=== PATIENT | male | born 1995 | race African-American/Black ===

== ENCOUNTER 2024-04-06 21:39 | Emergency (ER) | payer OTHER ==
[~2024-04-06] VITALS: Ht 182.9 cm; Wt 82.5 kg
[2024-04-06 22:23] VITALS: BP 127/84; PULSE 58; RESP 16; O2SAT 99
== END 2024-04-06 23:44 | disposition left against medical advice (07) ==
LOC: ER 21:39
DX: T67.8XXA Other effects of heat and light, initial encounter (principal); Z53.21 Procedure and treatment not carried out due to patient leaving prior to being seen by health care provider; X30.XXXA Exposure to excessive natural heat, initial encounter; Y93.89 Activity, other specified; Y92.89 Other specified places as the place of occurrence of the external cause; Y99.8 Other external cause status

== ENCOUNTER 2024-10-01 01:21 | Emergency (ER) | payer OTHER ==
[~2024-10-01] VITALS: Ht 182.9 cm; Wt 88.6 kg
--- NOTE | 2024-10-01 03:06 | DVH ---
CHEST RADIOGRAPH Indication: cp Technique: 1 view Comparison: None FINDINGS: Lines and Tubes: None Lungs: No focal consolidation. Pleura: No effusion or pneumothorax. Cardiomediastinal contours: Unremarkable. Bones: No acute osseous abnormality. IMPRESSION: 1. No acute cardiopulmonary abnormality.
[2024-10-01 03:13] LABS: Hemoglobin 14.9 g/dL (13.5-17.5)
[2024-10-01 03:13] LABS: Chloride 107 mmol/L (98-107); Potassium 3.9 mmol/L (3.5-5.1); Sodium 142 mmol/L (136-145)
[2024-10-01 03:14] LABS: Anion Gap 9 (5-15); Carbon Dioxide 26 mmol/L (20-31)
[2024-10-01 03:15] LABS: Calcium 9.2 mg/dL (8.7-10.4)
[2024-10-01 03:15] LABS: Hematocrit 36.1 % (41.0-53.0); Mean Corpuscular Hemoglobin 37.7 pg (28.0-32.0); Mean Corpuscular Volume 91.4 fL (80.0-100.0); Nucleated Red Blood Cells % 0.2 %
[2024-10-01 03:19] LABS: BUN/Creatinine Ratio 18.3 (10.0-20.0); Blood Urea Nitrogen 20 mg/dL (9-23); Glucose 91 mg/dL (74-106)
--- NOTE | 2024-10-01 03:49 | ED.PDOC ---
HPI Comments 28 y/o M with no significant past medical history presents with c/c of chest pain radiating to the throat and shortness of breath. Patient reports symptoms have been going on for the past 2 months intermittently, and denies any exacerbating or alleviating factors. Pain is described to be tight in quality. No recent travel, sick contact, nausea, vomiting, diaphoresis, edema or other symptoms. No pertinent medical history, with exception of paternal family history of heart disease. Chief Complaint: Chest Pain Time Seen by MD: 02:30 Primary Care Provider: NONE Reviewed Notes: Nurses Notes, Medications, Allergies Allergies: Coded Allergies: NO KNOWN ALLERGIES (Unverified , 02/09/13) Information Source: Patient Mode of Arrival: Ambulatory Severity: Moderate Timing: Months Duration: Intermittent Prehospital treatment: None Location: Substernal Radiation: Other (throat ) Quality: Tightness Cardiac Risk Factors: Smoker (former ) PE Risk Factors: None History of: Other (former tobacco smoker ) Modifying Factors: Nothing Associated Signs and Symptoms: SOB, Other (throat pain ) Past Medical History PAST MEDICAL HISTORY: Denies Surgical History: Denies all surgeries Family History Family History: Unobtainable Social History Smoker: Quit Less Than 1 Year Alcohol: Denies ETOH Use Drugs: Denies Drug Use Lives In: Home All Other Systems: Reviewed and Negative (Comprehensive review of systems are negative unless otherwise stated in HPI) Physical Exam General Appearance: No Apparent Distress HEENT: Other (Pupils and face symmetric. Moist mucous membranes.) Neck: Full Range of Motion, Normal Inspection Respiratory: Lungs Clear, No Accessory Muscle Use, No Respiratory Distress, Normal Breath Sounds Cardiovascular: No Edema, No JVD, Regular Rate/Rhythm Breast Exam: Deferred Gastrointestinal: Non Tender, Soft Genitalia: Deferred Pelvic: Deferred Rectal: Deferred Extremities: Normal inspection, Normal range of motion, Non-tender, No pedal edema Neurologic: Alert (Oriented x4), Normal Affect, Other (Ambulatory without difficulty. Appears anxious.) Cerebellar Function: NOT DONE Reflexes: NOT DONE Skin: Dry, Normal Color, Warm Lymphatic: NOT DONE EKG EKG : Comments Sinus rhythm, rate 58, normal intervals, normal axis, normal QRS, nonspecific T change. Was a procedure done? Was a procedure done?: No CP Differential Dx Differential Diagnosis: Angina, Anxiety / Panic Attack Differential Diagnosis: N/A Differential Diagnosis: Chest Wall Pain, Costochondritis, Esophageal reflux/spasm, Gastritis, Myocardial Infarction, Pericarditis, Pneumonia, Pulmonary Embolus X-Ray, Labs, Meds, VS Vital Signs Date Time Temp Pulse Resp B/P (MAP) Pulse Ox O2 Delivery O2 Flow Rate FiO2 10/01/24 04:23 97.7 70 16 115/57 (76) 97 97.7 10/01/24 01:34 98.2 57 16 138/96 96 98.2 10/01/24 01:31 58 Lab Test 10/01/24 02:39 10/01/24 02:30 10/01/24 01:38 Range/Units White Blood Count 4.6 4.4-10.8 10^3/uL Red Blood Count 3.95 L 4.5-5.90 10^6/uL Hemoglobin 14.9 13.5-17.5 g/dL Hematocrit 36.1 L 41.0-53.0 % Mean Corpuscular Volume 91.4 80.0-100.0 fL Mean Corpuscular Hemoglobin 37.7 H 28.0-32.0 pg Mean Corpuscular Hemoglobin Concent 41.2 H 32.0-36.0 g/dL Red Cell Distribution Width 13.7 11.8-14.3 % Platelet Count 162 140-450 10^3/uL Mean Platelet Volume 9.7 6.9-10.8 fL Neutrophils (%) (Auto) 52.8 37.0-80.0 % Lymphocytes (%) (Auto) 37.6 10.0-50.0 % Monocytes (%) (Auto) 7.0 0.0-12.0 % Eosinophils (%) (Auto) 1.8 0.0-7.0 % Basophils (%) (Auto) 0.8 0.0-2.0 % Neutrophils # (Auto) 2.4 1.6-8.6 10 ^3/uL Lymphocytes # (Auto) 1.7 0.4-5.4 10 ^3/uL Monocytes # (Auto) 0.3 0-1.3 10 ^3/uL Eosinophils # (Auto) 0.1 0-0.8 10 ^3/uL Basophils # (Auto) 0 0-0.2 10 ^3/uL Nucleated Red Blood Cells 0.2 % Troponin I High Sensitivity 8 8 </=54 ng/L D-Dimer, Quantitative < 0.19 0.0-0.49 mg/L FEU Sodium Level 142 136-145 mmol/L Potassium Level 3.9 3.5-5.1 mmol/L Chloride Level 107 98-107 mmol/L Carbon Dioxide Level 26 20-31 mmol/L Anion Gap 9 5-15 Blood Urea Nitrogen 20 9-23 mg/dL Creatinine 1.09 0.700-1.30 mg/dL Glomerular Filtration Rate Calc 95 >90 mL/min BUN/Creatinine Ratio 18.3 10.0-20.0 Serum Glucose 91 74-106 mg/dL Calcium Level 9.2 8.7-10.4 mg/dL B-Type Natriuretic Peptide 7.75 0-100 pg/mL [place] [id number] Ph: [phone] DIAGNOSTIC IMAGING Diagnostic Imaging Report : [id number] Signed PATIENT: WILMA MCCRAY ACCT: [id number] UNIT: [id number] : 1995 LOC: ER ROOM / BED: / AGE / SEX: 28 / M ADM STATUS: REG ER SERVICE 8 ORDERING PHYSICIAN: DEWEY SANTOS MD PROCEDURE(s): CXRP - CHEST PORTABLE REASON: cp ORDER NUMBER(s): [id number], ACCESSION NUMBER(s): [id number] CHEST RADIOGRAPH Indication: cp Technique: 1 view Comparison: None FINDINGS: Lines and Tubes: None Lungs: No focal consolidation. Pleura: No effusion or pneumothorax. Cardiomediastinal contours: Unremarkable. Bones: No acute osseous abnormality. IMPRESSION: 1. No acute cardiopulmonary abnormality. ATED BY: KATHY SILVESTRE MD DICTATED DATE/TIME: 10/01/24303 SIGNED BY: KATHY SILVESTRE MD SIGNED DATE/TIME: 10/01/24303 CC: X-Ray, Labs, Meds, VS Comment 28-year-old male with no significant past medical history complaining of chest pain and shortness of breath Vitals remarkable for heart rate 57, BP 138/96 Exam unremarkable Rhythm strip independently interpreted by me: Sinus rhythm, rate 58, no ectopy. Chest x-ray unremarkable CBC, basic metabolic panel, BNP, serial troponins and D-dimer unremarkable Patient treated with the following in the ED: Toradol 60 mg IM, Ativan 0.5 mg p.o. On re-evaluation, symptoms have resolved. Vitals were stable. Hospitalization was considered, however patient had rapid improvement of symptoms with treatment in the ED, and I no longer feel hospitalization is necessary. Patient appears stable for discharge with close outpatient follow-up with his primary physician for referral to a other sales support worker. Time of 1ST Reevaluation: 03:00 Reevaluation 1ST: Unchanged Patient Education/Counseling: Diagnosis, Treatment, Need For Follow Up Family Education/Counseling: No Family Present SEPSIS Sepsis Screen Date sepsis recognized/suspect: Oct 01, 2024 Time Sepsis recognized/suspect: 133 Recent Procedure: No On Antibiotic Therapy: No Respiratory Rate >20: No Heart Rate >90: No Temp<36 C (96.8 F) or >38.3 C: No SBP <90 or MAP <65 mmHG: No New Acute Mental Status Change: No Is the patient on CPAP, BIPAP,: No Physician Orders Electrocardigram (10/01/24 01:23) Electrocardigram (10/01/24 02:23) Electrocardigram (10/01/24 04:23) Chest Portable (10/01/24 02:39) Vital Signs Date Time Temp Pulse Resp B/P (MAP) Pulse Ox O2 Delivery O2 Flow Rate FiO2 10/01/24 04:23 97.7 70 16 115/57 (76) 97 97.7 10/01/24 01:34 98.2 57 16 138/96 96 98.2 10/01/24 01:31 58 Laboratory Tests Test 10/01/24 02:39 White Blood Count 4.6 10^3/uL (4.4-10.8) Departure 1 Departure Time of Disposition: 05:13 Impression: Primary Impression: Chest pain with low risk for cardiac etiology Disposition: HOME / SELF CARE / HOMELESS Condition: Stable Additional Instructions: Your blood tests, including screening test for heart attack, heart failure and blood clots in your lungs, were unremarkable. Your chest x-ray was normal. Your EKG was normal. Follow-up with your primary doctor in 1-2 days for referral to a other sales support worker for further evaluation. Discharged With: Self Critical Care Note Critical Care Time?: No Stability Stability form required: No Heart Score Heart Score: Heart Score Response (Comments) Value History Slightly Suspicious 0 EKG Repolarization Disturb 1 Age <45 0 Risk Factors 1 or 2 risk factors 1 Troponin Normal limit 0 Total 2 I personally scribed for DEWEY SANTOS MD ([email or web address]) on 10/01/24 at 03:49. Electronically submitted by Isreal Saul [email or web address]). DEWEY SANTOS MD Oct 01, 2024 03:49
[2024-10-01] MEDS: LORazepam 0.5 MG TAB PO ONE (04:59)
[2024-10-01] MEDS: KETOROLAC TROMETH 60MG/2ML VIAL IM ONE (05:00)
--- NOTE | 2024-10-01 06:40 | ECG ---
[facility] Test Date: 2024-10-01 Test Time: 01:31:20 Pat Name: WILMA MCCRAY Department: ED Room: Gender: Airline Captain: : 1995 Requested By: DEWEY WALTERS Order Number: [id number] Reading MD: Bhupendra Hargrove Measurements Intervals [place] Rate: 58 P: 16 NC: 152 QRS: 9 QRSD: 91 T: 58 QT: 422 QTc: 415 Interpretive Statements Sinus rhythm ST elev, probable normal early repol pattern Electronically Signed On 10-01-2024 22:09:38 PDT by Bhupendra Hargrove Please click the below link to view image of tracing.
[2024-10-01 06:42] VITALS: BP 124/89; PULSE 57; TEMP 97.5
[2024-10-01 06:46] VITALS: RESP 20; O2SAT 98
== END 2024-10-01 06:50 | disposition home or self-care (01) ==
LOC: ER 01:21
DX: R07.2 Precordial pain (principal); R06.02 Shortness of breath; R07.0 Pain in throat; Z87.891 Personal history of nicotine dependence
CPT/HCPCS: 36415; 71045; 80048; 83880; 84484; 85025; 85379; 93005